=== PATIENT | female | born 1970 | race Caucasian/White ===

== ENCOUNTER 2018-11-06 20:34 | Inpatient (IN) | payer OTHER ==
[~2018-11-06] VITALS: Ht 157.5 cm; Wt 67.5 kg
[2018-11-06] MEDS ORDERED: SOD CHLORIDE 0.9% 0 ML IV ONE (22:48)
--- NOTE | 2018-11-06 22:55 | ERD ---
ER Documentation Chief Complaint Chief Complaint MD referral for lab work, hemoglobin 5.2 HPI During the patient's encounter translation services were utilized Language: [Syriac] Source: [Family] [in person] 48-year-old female history of menorrhagia for the past 3 years with no prior transfusions. The patient has generalized weakness and lightheadedness upon standing. Outpatient blood testing showed a hemoglobin in the 5 range. Patient was sent to the emergency room for transfusion. She has no active vaginal bleeding at this time. She does note heavy and prolonged menses again over the last 3 years not improved with oral contraceptive pills. No hematemesis, no melena. ROS All systems reviewed and are negative except as per history of present illness. Allergies Allergies: Coded Allergies: No Known Allergy (Unverified , 11/06/18) FmHx Family History: No diabetes Physical Exam Vitals Vital Signs Date Temp Pulse Resp B/P (MAP) Pulse Ox O2 O2 Flow FiO2 Time Delivery Rate 11/06/18 99.4 87 16 130/68 100 20:36 (88) Physical Exam General: Well developed, well nourished, no acute distress, pallor noted Head: Normocephalic, atraumatic. Eyes: Pupils equally reactive, EOM intact conjunctival pallor ENT: Moist mucous membranes Neck: Supple, no lymphadenopathy Respiratory: Lungs clear bilaterally, no distress Cardiovascular: RRR, no murmurs, rubs, or gallops Abdominal: Soft, non-tender, non-distended, no peritoneal signs : Deferred MSK: No edema, no unilateral swelling, 5/5 strength Neurologic: Alert and oriented, moving all extremities, normal speech, no focal weakness, no cerebellar signs Skin: No rash Psych: Normal mood Result Diagram: 11/06/18 2224 11/06/18 2224 Results 24 hrs Laboratory Tests Test 11/06/18 22:24 White Blood Count 10.0 10^3/ul Red Blood Count 3.11 10^6/ul Hemoglobin 5.4 g/dl Hematocrit 19.6 % Mean Corpuscular Volume 63.0 fl Mean Corpuscular Hemoglobin 17.4 pg Mean Corpuscular Hemoglobin Concent 27.6 g/dl Red Cell Distribution Width 19.7 % Platelet Count 367 10^3/UL Mean Platelet Volume 9.7 fl Immature Granulocytes % 0.300 % Neutrophils % % Segmented Neutrophils % (Manual) 67 % Lymphocytes % % Lymphocytes % (Manual) 27 % Monocytes % % Monocytes % (Manual) 4 % Eosinophils % % Eosinophils % (Manual) 1 % Basophils % % Basophils % (Manual) 1 % Nucleated Red Blood Cells % 0.0 /100WBC Immature Granulocytes # 0.030 10^3/ul Neutrophils # 10^3/ul Lymphocytes (Manual) 2.7 10^3/ul Lymphocytes # 10^3/ul Monocytes # 10^3/ul Monocytes # (Manual) 0.4 10^3/ul Eosinophils # 10^3/ul Basophils # 10^3/ul Basophils # (Manual) 0.1 10^3/ul Nucleated Red Blood Cells # 10^3/ul Platelet Estimate NORMAL Polychromasia 1+ Hypochromasia 3+ Poikilocytosis 2+ Anisocytosis 3+ Microcytosis 3+ Tear Drop Cells 1+ Ovalocytes 1+ Prothrombin Time 12.7 Sec Prothrombin Time Ratio 1.0 INR International Normalized Ratio 0.94 Activated Partial Thromboplast Time 30.9 Sec Sodium Level 139 mmol/L Potassium Level 3.7 mmol/L Chloride Level 103 mmol/L Carbon Dioxide Level 21 mmol/L Anion Gap 15 Blood Urea Nitrogen 16 mg/dl Creatinine 0.83 mg/dl Est Glomerular Filtrat Rate mL/min > 60 mL/min Glucose Level 100 mg/dl Calcium Level 9.2 mg/dl Current Medications Medications Dose Sig/Joanne Start Time Status Last (Trade) Ordered Route PRN Stop Time Admin Dose Reason Admin Sodium 0 ml @ 0 Q0M ONCE 11/06/18 DC 11/06/18 Chloride mls/hr IV 22:48 23:08 11/06/18 22:49 Ondansetron 4 mg BRIDGE ORDER 11/06/18 HCl (Zofran PRN IV 23:00 Inj) NAUSEA/VOMITI 11/07/18 22:59 NG 650 mg ER BRIDGE 11/06/18 Acetaminophen PRN PO 23:00 (Tylenol .MILD PAIN 11/07/18 22:59 Tab) 1-3 OR TEMP IV Flush 3 ml PER 11/06/18 (NS 3 ml) PROTOCOL IV 23:00 Ondansetron 4 mg Q6H PRN 11/06/18 HCl (Zofran IV 23:00 Inj) NAUSEA/VOMITI NG Morphine 2 mg Q4H PRN 11/06/18 Sulfate IV .SEVERE 23:00 (morphine) PAIN 7-10 Procedures/MDM LAB INTERPRETATION: * Hemoglobin 5.2, no coagulopathy MEDICAL DECISION MAKING: Patient has symptomatic anemia secondary to menorrhagia. No signs or symptoms concerning for GI losses. The patient is hemodynamically stable but symptomatic and would benefit from blood transfusion. I discussed with the patient and/or family the risks, benefits, alternatives of blood transfusion. This includes allergic reaction and infections including HIV and hepatitis. The patient and/or family were able to verbalize these risks, stated understanding. A document has been signed and placed in the chart. 2 units of packed red blood cells can be transfused. 2 units of packed red blood cells can be transfused. ER COURSE: * The patient will be transfused 2 units of packed red blood cells. She will be admitted for observation, transfusion and OB consultation. She is stable. CONSULTATION: [None] DISPOSITION PLAN: Accepting care team and consultations: I discussed the current laboratory data, diagnostic imaging and emergency care provided. Admitting team: Dr. Acuña Admitting team indication: Insurance directed Departure Diagnosis: Primary Impression: Symptomatic anemia Additional Impression: Menorrhagia Menorrahagia type: with regular cycle Qualified Codes: N92.0 - Excessive and frequent menstruation with regular cycle Condition: Stable GOLDY DAVID MD Nov 06, 2018 22:55
[2018-11-06] MEDS ORDERED: NACL 0.9% 3 ML SYG IV SCH (23:00)
[2018-11-06] MEDS ORDERED: ONDANSETRON 4 MG INJ IV PRN ×2 (23:00)
[2018-11-06] MEDS ORDERED: morphine 2 MG INJ IV PRN (23:00)
[2018-11-06] MEDS ORDERED: ACETAMINOPHEN 325 MG TAB PO PRN (23:00)
[2018-11-07 02:00] VITALS: Ht 157.5 cm; Wt 67.5 kg
[2018-11-07 02:12] VITALS: BP 134/80; PULSE 62; RESP 18
--- NOTE | 2018-11-07 06:13 | NUR ---
End of Shift Summary: Pt oriented to unit and call light. Pt denies any active bleeding. Pt received 1 unit of PRBC's in ER and 1 more unit on the unit. Hgh 5.4 on 11/06/18. Pt had no transfusion reaction. Admission questions completed and skin assessed. No skin breakdown noted. Pt refused photo documentation. Pt denied pain. Pt is A&O x4. No acute changes. Respiratory and hemodynamics remain stable. Patient denies chest pain, palpitations, shortness of breath, nausea, vomiting, headache, cough, or changes in bowel/bladder habits. Safety precautions maintained throughout the shift. Bed in lowest position and bed alarm activated. Call light within reach. Hourly rounding rendered. All needs met.
[2018-11-07 08:22] VITALS: BP 119/67; PULSE 66; RESP 18
--- NOTE | 2018-11-07 13:25 | HP ---
Date/Time of Note Date/Time of Note DATE: 11/07/18 TIME: 13:23 Assessment/Plan VTE [place] [facility] [place] risk: 1 [place]CD applied [place] [facility] [place] Yes Pharmacological prophylaxis: NA/contraindicated Pharm contraindication: bleeding Lines/Catheters IV [facility] Saline Lock Assessment/Plan Assessment/Plan -Symptomatic anemia secondary to menorrhagia. Status post blood transfusion. Continue to monitor hemoglobin and hematocrit. Further recommendations based on clinical course. Plan of care discussed with Dr. Salinas. Result Diagram: 11/07/18 0730 11/07/18 0730 Results 24hrs Laboratory Tests Test 11/06/18 22:22 11/06/18 22:24 11/07/18 06:21 11/07/18 07:30 Urine NEGATIVE Test White Blood Count 10.0 6.2 # Red Blood Count 3.11 L 3.98 #L Hemoglobin 5.4 *L 8.4 #L Hematocrit 19.6 L 27.7 #L Mean Corpuscular 63.0 L 69.6 L Volume Mean Corpuscular 17.4 L 21.1 #L Hemoglobin Mean Corpuscular 27.6 L 30.3 L Hemoglobin Concen t Red Cell 19.7 H 25.8 #H Distribution Width Platelet Count 367 314 Mean Platelet 9.7 10.0 Volume Immature 0.300 0.300 Granulocytes % Neutrophils % 62.4 Segmented 67 Neutrophils % (Manual) Lymphocytes % 28.0 Lymphocytes % 27 (Manual) Monocytes % 6.1 Monocytes % 4 (Manual) Eosinophils % 1.9 Eosinophils % 1 (Manual) Basophils % 1.3 Basophils % 1 (Manual) Nucleated Red 0.0 0.0 Blood Cells % Immature 0.030 0.020 Granulocytes # Neutrophils # 3.9 Lymphocytes 2.7 (Manual) Lymphocytes # 1.7 Monocytes # 0.4 Monocytes # 0.4 (Manual) Eosinophils # 0.1 Basophils # 0.1 Basophils # 0.1 H (Manual) Nucleated Red 0.0 Blood Cells # Platelet Estimate NORMAL Polychromasia 1+ Hypochromasia 3+ Poikilocytosis 2+ Anisocytosis 3+ Microcytosis 3+ Tear Drop Cells 1+ Ovalocytes 1+ Prothrombin Time 12.7 Prothrombin Time 1.0 Ratio INR International 0.94 Normalized Ratio Activated 30.9 Partial Thrombopl ast Time Sodium Level 139 142 Potassium Level 3.7 3.6 Chloride Level 103 103 Carbon Dioxide 21 24 Level Anion Gap 15 H 15 H Blood Urea 16 10 Nitrogen Creatinine 0.83 0.80 Est Glomerular > 60 > 60 Filtrat Rate mL/min Glucose Level 100 83 Calcium Level 9.2 8.8 Lab Scanned BLOOD TRANSFUSIO Report N Hemoglobin A1c 5.6 Total Bilirubin 0.4 Direct Bilirubin 0.00 Indirect 0.4 Bilirubin Aspartate Amino 23 Transf (AST/SGOT) Alanine 20 Aminotransferase (ALT/SGPT) Alkaline 52 Phosphatase Total Protein 8.1 Albumin 4.3 Globulin 3.80 H Albumin/Globulin 1.13 Ratio Test 11/07/18 09:53 Lab Scanned LAB Report HPI/ROS Admit Date/Time Admit Date/Time Nov 07, 2018 at 00:47 Hx of Present Illness The patient is a 48-year-old female with history of menorrhagia for the last 3 years. Patient complains of generalized weakness and lightheadedness upon standing upright. Patient was seen at the primary care physician office and noted to have hemoglobin in the range of 5. She was referred to the emergency room for blood transfusion. Patient stated that she was previously oral contraceptive for menorrhagia prescribed by her CURTAIN STRETCHER ASSEMBLER, however, patient did not had any medications for 1 year due to change in insurance. Patient denies any melena denies hematemesis denies any bleeding her last period was on October 20. Patient underwent blood transfusion and admitted to medical surgical floor for further management. ROS 12 point review of system is negative except for what mentioned in HPI PMH/Family/Social Past Medical History Thyroid problem details are not available patient does not remember the name of medication she used to take 1 year ago Medications Current Medications Ondansetron HCl (Zofran Inj) 4 mg BRIDGE ORDER PRN IV NAUSEA/VOMITING; Start 11/06/18 at 23:00; Stop 11/07/18 at 22:59 Acetaminophen (Tylenol Tab) 650 mg ER BRIDGE PRN PO .MILD PAIN 1-3 OR TEMP; Start 11/06/18 at 23:00; Stop 11/07/18 at 22:59 IV Flush (NS 3 ml) 3 ml PER PROTOCOL IV ; Start 11/06/18 at 23:00 Ondansetron HCl (Zofran Inj) 4 mg Q6H PRN IV NAUSEA/VOMITING; Start 11/06/18 at 23:00 Morphine Sulfate (morphine) 2 mg Q4H PRN IV .SEVERE PAIN 7-10; Start 11/06/18 at 23:00 Coded Allergies: No Known Allergy (Unverified , 11/06/18) Past Surgical History Past Surgical Hx: other ( 17 years ago) Family History Significant Family History: no pertinent family hx Social History Alcohol Use: none Smoking Status: Never smoker Drug Use: none Exam/Review of Systems Vital Signs Vitals Vital Signs Date Temp Pulse Resp B/P (MAP) Pulse Ox O2 O2 Flow FiO2 Time Delivery Rate 11/07/18 97.3 66 18 119/67 100 Room Air 08:22 (84) Exam Constitutional: alert, oriented Head: normocephalic Neck: supple Respiratory: clear to auscultation Cardiovascular: nl pulses Gastrointestinal: soft, non-tender Musculoskeletal: nl extremities to inspection Extremities: normal pulses HERRERA BARNES Nov 07, 2018 13:25
[2018-11-07] MEDS ORDERED: BISACODYL (EC) 5 MG TAB PO PRN (14:00)
[2018-11-07] MEDS: DOCUSATE SODIUM 100 MG CAP PO SCH ×2 (14:24→20:40)
--- NOTE | 2018-11-07 20:00 | NUR ---
EOSS Patient completed blood transfusion at 0700 and denied symptoms of infusion reaction. Hemoglobin increased from 5.4 to 8.4. Patient reported her symptoms of shortness of breath, fatigue, and pallor relieved post transfusion. Will start iron supplement on night clerk auditor, educated on importance of iron and to monitor for symptoms of anemia she experienced and report to her doctor. Tolerating po diet. SCDs in place. Hourly rounding performed, bed in low, locked position and call light kept within reach. Addendum: 11/07/18 at 2002 by BETTIE JOLLEY RN Had pelvic ultrasound today, results in computer. Addendum: 11/07/18 at 2003 by BETTIE JOLLEY RN Denied vaginal bleeding throughout shift. Had two BMs.
[2018-11-07 20:02] VITALS: BP 112/59; PULSE 56; RESP 18
[2018-11-07] MEDS: FERROUS SULFATE (EC) 325 MG TAB PO SCH (20:40)
[2018-11-08 01:03] VITALS: BP 99/62; PULSE 58; RESP 18
[2018-11-08 07:46] VITALS: BP 111/60; PULSE 68; RESP 19
[2018-11-08] MEDS: FERROUS SULFATE (EC) 325 MG TAB PO SCH ×2 (09:00→20:23)
[2018-11-08] MEDS: DOCUSATE SODIUM 100 MG CAP PO SCH ×2 (09:00→20:23)
[2018-11-08] MEDS: LEVOTHYROXINE 100 MCG TAB PO SCH (15:58)
[2018-11-08 16:19] VITALS: BP 119/62; PULSE 62; RESP 19
--- NOTE | 2018-11-08 16:40 | PN ---
Date/Time of Note Date/Time of Note DATE: 11/08/18 TIME: 16:38 Assessment/Plan VTE Prophylaxis Risk score (from Ns)>0 risk: 1 SCD applied (from Ns): Yes Pharmacological prophylaxis: NA/contraindicated Pharm contraindication: bleeding Lines/Catheters IV C[facility] Type [facility]from [facility] Saline Lock Assessment/Plan Hospital Course Patient remains hemodynamically stable hemoglobin is 9.1, pending evaluation by SPRING TESTER. Assessment/Plan -Symptomatic anemia secondary to menorrhagia. Status post blood transfusion. Continue to monitor hemoglobin and hematocrit. Pelvic ultrasound revealed uterine fibroids and uterine cyst. ASBESTOS HAZARD ABATEMENT WORKER carbon cutter is asked to see patient. -Hypothyroidism, start levothyroxine 50 mcg. Education provided for importance of medication compliance. Further recommendations based on clinical course. Plan of care discussed with Dr. Salinas. Result Diagram: 11/08/187 11/08/18446 Results 24hrs Laboratory Tests Test 11/08/18 04:47 11/08/18 07:37 White Blood Count 7.6 # Red Blood Count 4.34 Hemoglobin 9.1 L Hematocrit 30.0 L Mean Corpuscular Volume 69.1 L Mean Corpuscular Hemoglobin 21.0 L Mean Corpuscular Hemoglobin Concent 30.3 L Red Cell Distribution Width 25.5 H Platelet Count 322 Mean Platelet Volume 10.0 Immature Granulocytes % 0.300 Neutrophils % 53.1 Lymphocytes % 36.3 Monocytes % 6.2 Eosinophils % 3.0 Basophils % 1.1 Nucleated Red Blood Cells % 0.0 Immature Granulocytes # 0.020 Neutrophils # 4.0 Lymphocytes # 2.7 Monocytes # 0.5 Eosinophils # 0.2 Basophils # 0.1 Nucleated Red Blood Cells # 0.0 Sodium Level 141 Potassium Level 3.8 Chloride Level 100 Carbon Dioxide Level 24 Anion Gap 17 H Blood Urea Nitrogen 10 Creatinine 0.89 Est Glomerular Filtrat Rate mL/min > 60 Glucose Level 87 Calcium Level 9.3 Thyroid Stimulating Hormone (TSH) 70.800 H Free Thyroxine 0.16 L Free Triiodothyronine (T3) pg/mL 0.92 L Lab Scanned Report BLOOD TRANSFUSION Exam/Review of Systems Exam Vitals Vital Signs Date Temp Pulse Resp B/P (MAP) Pulse Ox O2 O2 Flow FiO2 Time Delivery Rate 11/08/18 98.1 62 19 119/62 98 16:19 (81) 11/08/18 Room Air 01:03 Intake and Output 11/07/18 11/07/18 11/08/18 1414:59 22:59 06:59 IntakeIntake Total 500 ml BalanceBalance 500 ml Exam Constitutional: alert, oriented Head: normocephalic Neck: supple Respiratory: clear to auscultation Cardiovascular: nl pulses Gastrointestinal: soft, non-tender Musculoskeletal: nl extremities to inspection Extremities: normal pulses Results Results 24hrs Laboratory Tests Test 11/08/18 04:47 11/08/18 07:37 White Blood Count 7.6 # Red Blood Count 4.34 Hemoglobin 9.1 L Hematocrit 30.0 L Mean Corpuscular Volume 69.1 L Mean Corpuscular Hemoglobin 21.0 L Mean Corpuscular Hemoglobin Concent 30.3 L Red Cell Distribution Width 25.5 H Platelet Count 322 Mean Platelet Volume 10.0 Immature Granulocytes % 0.300 Neutrophils % 53.1 Lymphocytes % 36.3 Monocytes % 6.2 Eosinophils % 3.0 Basophils % 1.1 Nucleated Red Blood Cells % 0.0 Immature Granulocytes # 0.020 Neutrophils # 4.0 Lymphocytes # 2.7 Monocytes # 0.5 Eosinophils # 0.2 Basophils # 0.1 Nucleated Red Blood Cells # 0.0 Sodium Level 141 Potassium Level 3.8 Chloride Level 100 Carbon Dioxide Level 24 Anion Gap 17 H Blood Urea Nitrogen 10 Creatinine 0.89 Est Glomerular Filtrat Rate mL/min > 60 Glucose Level 87 Calcium Level 9.3 Thyroid Stimulating Hormone (TSH) 70.800 H Free Thyroxine 0.16 L Free Triiodothyronine (T3) pg/mL 0.92 L Lab Scanned Report BLOOD TRANSFUSION Medications Medication Current Medications IV Flush (NS 3 ml) 3 ml PER PROTOCOL IV ; Start 11/06/18 at 23:00 Ondansetron HCl (Zofran Inj) 4 mg Q6H PRN IV NAUSEA/VOMITING; Start 11/06/18 at 23:00 Morphine Sulfate (morphine) 2 mg Q4H PRN IV .SEVERE PAIN 7-10; Start 11/06/18 at 23:00 Docusate Sodium (Colace) 100 mg BID PO Last administered on 11/08/18at 09:00; Admin Dose 100 MG; Start 11/07/18 at 14:00 Bisacodyl (Dulcolax) 10 mg DAILY PRN PO CONSTIPATION; Start 11/07/18 at 14:00 Ferrous Sulfate (Ferrous Sulfate (Ec)) 325 mg BID PO Last administered on 11/08/18at 09:00; Admin Dose 325 MG; Start 11/07/18 at 21:00 Levothyroxine Sodium (Synthroid) 100 mcg DAILY@06 PO Last administered on 11/08/18at 15:58; Admin Dose 100 MCG; Start 11/08/18 at 15:00 HERRERA BARNES Nov 08, 2018 16:40
--- NOTE | 2018-11-08 16:52 | QN ---
Documentation Comment Driver Service Technician consult 48 yo with menorrhagia and Hx of Fibroid uterus currently not bleeding Received Blood transfusion PMH Denies PSH 1c/s PE VS stable Gen NAD Abd soft NT ND Genitalia No blood in vaginal vault A/p Different alternatives of treatment discussed with patient She needs a D&C&Hysteroscopy or EMB as an outpatient to R/o Cancer or Endometrial Hyperplasia NO Acute Driver Service Technician intervention is needed at this time Questions answered precautions discussed Follow up with provider DELMIS MCDUFFIE M.D. Nov 08, 2018 16:52
--- NOTE | 2018-11-08 17:12 | NUR ---
CM NOTES: S/W PT'S SON AT THE BEDSIDE AND THIS CM VERIFIED THE ADDRESS AND TELEPHONE #S. INFORMED HIM THAT FAXED THE ORDER TO [phone] [facility] ALSO. PER THE BEDSIDE NURSE, PT WILL BE DC HOME TOMORROW. JONNIE MOURA LEAD CM [id number]
--- NOTE | 2018-11-08 17:23 | NUR ---
GLADYS Hernandez requested this health technical writer reinforce to patient that she must follow up with PCP for thyroid medication management, that she was being started on one dose and may need adjustment. It was expressed that patient should not go a year off medication as she had before this hospitalization. Patient verbalized understanding. Patient was educated a ROOMS DIRECTOR would see her in the hospital and that case management will follow up with patient to provide outpatient ROOMS DIRECTOR contact information for management of her fibroid and heavy menstrual bleeding so she hopefully does not become anemic in the future. ROOMS DIRECTOR visited and recommended patient follow up with outpatient ROOMS DIRECTOR to have a camera procedure. CARDIOLOGY RN and patient's son assisted RN to translate information to patient and her spouse. Patient and spouse aware ADELAIDA Cardenas will prepare outpatient ROOMS DIRECTOR through their insurance, per Theresa insurance will mail patient information. Patient has primary care doctor. Patient and spouse verbalized understanding. Addendum: 11/08/18 at 1728 by BETTIE JOLLEY RN Mary aware of education provided to patient.
--- NOTE | 2018-11-08 19:02 | NUR ---
EOSS VSS, hemoglobin over 9. No active vaginal bleeding during shift. Started levothyroxine togoran, educated patient to follow up with primary physician for management of dose per Mary. Seen by gynocologist and patient advised to follow up with outpatient OBGYN for further assessment and management of her uterine fibroids, patient verbalized understanding; ADELAIDA Cardenas followed up with family to work with insurance for OBGYN referral. Tolerating po diet. Tolerating po iron. Passing gas. Possible d/c tomorrow per Mary.
[2018-11-08 20:01] VITALS: BP 116/69; PULSE 73; RESP 18
[2018-11-09 01:13] VITALS: BP 95/59; PULSE 61; RESP 18
[2018-11-09] MEDS: LEVOTHYROXINE 100 MCG TAB PO SCH (05:42)
[2018-11-09 08:09] VITALS: BP 102/60; PULSE 59; RESP 18
[2018-11-09] MEDS: FERROUS SULFATE (EC) 325 MG TAB PO SCH (08:17)
[2018-11-09] MEDS: DOCUSATE SODIUM 100 MG CAP PO SCH (08:17)
[2018-11-09] MEDS ORDERED: FER325 PO (14:56)
[2018-11-09] MEDS ORDERED: BISA5TAB6 PO (14:56)
[2018-11-09] MEDS ORDERED: LEVO100T8 PO (14:56)
[2018-11-09] MEDS ORDERED: DOCU-216 PO (14:56)
--- NOTE | 2018-11-09 17:30 | NUR ---
DISCHARGE PT WITH AT BEDSIDE. READY TO BE DC'D HOME. VSS,NO CHANGE IN CONDITION AT THIS TIME. DC INSTRUCTIONS PROVIDED TO PT AND . REINFORCED IMPORTANCE OF F/U WITH PCP FOR HYPOTHYROIDISM TX, AND ALSO F/U WITH OB REFERRAL. EXPLAINED IN DETAIL NEW MEDICATIONS REGIMEN AND SIDE EFFECTS. BOTH PT AND VERBALIZED UNDERSTANDING. IV HL DC'D. OFF UNIT VIA WHEELCHAIR, ESCORTED BY VOLUNTEER. WITH RX,DC INSTRUCTIONS AND BELONGINGS ON HAND.
--- NOTE | 2018-11-13 23:02 | DS ---
Date/Time of Note Date/Time of Note DATE: 11/13/18 TIME: 22:58 Discharge Summary Admission/Discharge Info Admit Date/Time Nov 07, 2018 at 00:47 Discharge Date/Time Nov 09, 2018 at 17:50 Patient Condition: Stable Hx of Present Illness The patient is a 48-year-old female with history of menorrhagia for the last 3 years. Patient complains of generalized weakness and lightheadedness upon standing upright. Patient was seen at the primary care physician office and noted to have hemoglobin in the range of 5. She was referred to the emergency room for blood transfusion. Patient stated that she was previously oral contraceptive for menorrhagia prescribed by her FOUNDATION DIRECTOR, however, patient did not had any medications for 1 year due to change in insurance. Patient denies any melena denies hematemesis denies any bleeding her last period was on October 20. Patient underwent blood transfusion and admitted to medical surgical floor for further management. Hospital Course -Symptomatic anemia secondary to menorrhagia. Status post blood transfusion. Continue to monitor hemoglobin and hematocrit, stable, no bleeding. Pelvic ultrasound revealed uterine fibroids and uterine cyst. S/p evaluation by Dr Nichole in ADMISSIONS SPECIALIST consultation. CM arranged for outpatient ADMISSIONS SPECIALIST f/up. -Hypothyroidism, start levothyroxine 100 mcg. Education provided for importance of medication compliance. Plan of care discussed with Dr. Salinas. Home Meds Active Scripts Levothyroxine Sodium* (Levothyroxine Sodium*) 100 Mcg Tablet, 100 MCG PO DAILY@06 for 30 Days, TAB Prov:HERRERA BARNES 11/09/18 Bisacodyl* (Bisacodyl*) 5 Mg Tablet., 10 MG PO DAILY PRN for CONSTIPATION, #30 Prov:HERRERA BARNES 11/09/18 Docusate Sodium (Dok) 100 Mg Capsule, 100 MG PO BID for 30 Days, CAP Prov:HERRERA BARNES 11/09/18 Ferrous Sulfate* (Ferrous Sulfate*) 325 Mg Tabec, 325 MG PO BID for 30 Days, TAB Prov:HERRERA BARNES 11/09/18 Follow-up Plan Follow-up with PMD, TSH level at PMD office in 6 weeks, follow-up with religious educator for possible D&C&Hysteroscopy or EMB as an outpatient to R/o Cancer or Endometrial Hyperplasia. Primary Care Provider Matheus Aquino Time spent on discharge: > 30 minutes HERRERA BARNES Nov 13, 2018 23:02
== END 2018-11-09 17:50 | disposition home or self-care (01) | DRG 812 ==
LOC: E/R 20:34 → MS1 22:51 → OBSVTOIN 11-07 00:47
PROVIDERS: ADMIT Internal Medicine; ATTEND Internal Medicine
PROC: 30233N1 Transfusion of Nonautologous Red Blood Cells into Peripheral Vein, Percutaneous Approach (ICD-10-PCS; principal; 2018-11-06)
DX: D50.0 Iron deficiency anemia secondary to blood loss (chronic) (principal); N92.0 Excessive and frequent menstruation with regular cycle; E03.9 Hypothyroidism, unspecified; D25.9 Leiomyoma of uterus, unspecified
CPT/HCPCS: 36415; 36430; 76856; 80048; 80053; 83036; 84439; 84443; 84481; 84703; 85025; 85610; 85730; 86644; 86850; 86900; 86901; 86920; G0378; J7040; P9016